=== PATIENT | male | born 1975 | race Caucasian/White ===

== ENCOUNTER 2024-04-23 11:24 | Day surgery (SDC) | payer MEDICARE, MEDICAID, SELFPAY ==
[2024-04-15 08:27] VITALS: BMI 25.8
[2024-04-23] VITALS (7 sets, daily range): BP systolic 128–164; BP diastolic 63–98; PULSE 74–99; RESP 16–22; TEMP 35.9–37.1; O2SAT 94–100; BMI 24.6
--- NOTE | 2024-04-23 | DI.RAD.S_ITS ---
PROCEDURE: XR HIP W PEL IF DONE RT 2V TECHNIQUE: Fluoroscopic guidance utilized for a right total hip arthroplasty placement COMPARISON: None. FINDINGS: Fluoroscopic images submitted for a right total hip arthroplasty placement. Please see operative note for further discussion. IMPRESSION: Fluoroscopic guidance. Dictated by: Florentin Bai M.D. on 04/23/2024 at 17:07 Approved by: Florentin Bai M.D. on 04/23/2024 at 17:08
--- NOTE | 2024-04-23 07:18 | DI.RAD.S_ITS ---
PROCEDURE: XR HIP W PEL IF DONE RT 2V INDICATIONS: RENETTA TECHNIQUE: AP pelvis and lateral view of the hip acquired. COMPARISON: [facility], CR, XR HIP W PEL IF DONE RT 2V, 04/23/2024, 15:51. FINDINGS: Bones: Patient is status post right hip arthroplasty, with hardware components in expected positions. The hip joint appears congruent. The visualized bony structures appear intact. Soft tissues: Overlying postoperative changes are noted. No suspicious soft tissue densities. IMPRESSION: Expected post-operative appearance of a hip arthroplasty. Dictated by: Aaron Mcfarlane M.D. on 04/24/2024 at 14:20 Approved by: Aaron Mcfarlane M.D. on 04/24/2024 at 14:21
[2024-04-23] MEDS: LACTATED RINGERS 1,000 ML 42 ML IV (12:04)
[2024-04-23] MEDS: ACETAMINOPHEN 325 MG TABLET 975 MG PO (12:04)
[2024-04-23] MEDS: CELECOXIB 200 MG CAPSULE PO (12:04)
[2024-04-23] MEDS: SODIUM CHLORIDE 0.9% FLUSH 10 ML IV (12:05)
[2024-04-23] MEDS: VANCOMYCIN 1,000 MG/200 ML PIGGYBACK 200 MG IV (12:06)
--- NOTE | 2024-04-23 14:12 | PM.PREOP ---
Pre-operative Note Interval Note History & Physical reviewed/Exam performed by Physician: Yes Changes to H&P: No
--- NOTE | 2024-04-23 14:12 | PM.OP.1 ---
Operative Date/Time/Diagnoses Date of procedure: 04/23/24 Time of procedure: 14:40 Pre-op diagnosis: Right hip avascular necrosis Post-op diagnosis: same Procedure & Clinicians Procedure: Right total hip arthroplasty anterior approach Same procedure as scheduled: Yes Indications: The patient has had progressively worsening right hip pain with radiographic changes consistent with arthritis. Non-operative management has failed and the patient has requested total hip replacement. The risks, benefits and alternatives to surgery were discussed with the patient prior to proceeding. Risks discussed included, but were not limited to, failure to relieve pain, leg length discrepancy, dislocation, stiffness, infection, nerve damage, deep venous thrombosis, pulmonary embolism, stroke, coma, heart attack, permanent paralysis and , as well as the potential need for eventual revision of the prosthetic. Surgeon: Constanza Ellis Er Registrar: Colin Jones Anesthesia Type: General and Spinal Operative Notes Findings: Right hip avascular necrosis, good bone, adequate stability Closure Type: primary Specimen(s): none sent Prosthetic devices, grafts, tissues, transplants, or devices: Ellis and nephew R3 58, neutral poly liner, one 6.5 mm screw, polar stem size 5 standard offset with collar, 36 by +4 Oxinium head, Estimated Blood Loss (mL): 250 Blood products transfused: none Procedure in detail: The patient was brought to the operating room. Patient was carefully positioned in the supine position. Time-out was performed and antibiotics were given. Anesthesia was induced. He was positioned in the on the table in order to allow hyperextension of the hip. The right lower extremity was prepped and draped in a standard sterile fashion. An anterior right hip incision was made 1 fingerbreadth lateral to the anterior superior iliac spine and extended distally towards the greater trochanter. Dissection was carried out through skin and subcutaneous tissues. Superficial hemostasis was achieved. The fascia over the tensor fascia fidel was defined and incised with a knife. Two Allis clamps were used to grasp the fascia. Tensor fascia fidel was retracted laterally. A gelpi retractor was placed. Dissection was carried out down along the neck. The circumflex vessels were carefully identified and cauterized with the Aqua Mantis. A PA was used during the procedure and was essential for intraoperative retraction and safe implantation of the components. There was good visualization of the femoral neck. A Cobra was placed superior to the neck and the gluteus fibers were carefully stripped from that superior aspect of the capsule. A 2nd retractor was placed along the inferior aspect of the neck. The rectus insertion along the capsule was partially released. A 3rd retractor that was then gently placed over the rim of the acetabulum under the rectus. Capsule was carefully incised and released from the intertrochanteric line circumferentially superior to the mid sagittal line and inferiorly to the mid sagittal line until the lesser trochanter was palpable. A tag stitch was placed both in the superior and inferior limb of the capsular insertion. Along the acetabulum capsule was also released up to the mid sagittal 12:00 position. A portion of the labrum was resected. A saw was used to perform an osteotomy at the level of the intertrochanteric line and the junction of the superior femoral neck leaving approximately 1 finger breath of residual inferior neck above the lesser trochanter. A 2nd cut was made along the femoral neck at the base of the head and a napkin ring of neck was removed. Corkscrew was placed in the femoral head and the head was removed without difficulty. Retractors were then repositioned around the acetabulum. Residual labrum was resected and additional osteophytes were removed. A reamer that was 4 mm below the templated size was placed by hand in the acetabulum and it was reamed to centralize the acetabulum. It was then reamed up to 2 under the templated size and fluoroscopy was brought in to confirm the position of the reaming and depth of reaming. I reamed 1 under the anticipated size. A trial cup was placed and noted that it was appropriately sized and fluoroscopy confirmed position and depth. The component was open and inserted without difficulty fluoroscopic imaging was used to confirm that the cup had been adequately seated and was well positioned. It was further stabilized with a single screw. Neutral poly liner was placed. The cup was tested and noted to be stable. Attention was then directed to the femur. The femur was gently hyperextended additional capsular release was performed as needed in order to allow adequate visualization of the proximal femur with elevation of the femur. Patient was placed in a hyperextended slightly adducted position with maximum external rotation. Box osteotome was used to check for any residual neck as well as sclerotic bone along the trochanter. [place] pepper was placed in the femur. Additional broaching was performed. Canal finder was used to determine the alignment of the canal and position. Size 1 broach was placed. The canal was then appropriately broached up to the templated size as long as there was adequate stability of the broach and serial advancement of the broach without excessive impingement. Specific attention was directed at avoiding varus attempting to direct the distal aspect of the broach more anteriorly and avoiding excessive anteversion. Trial reduction showed acceptable range of motion, good stability, no posterior impingement, anglican of leg length and appropriate lateral shuck. I also hyperflexed the hip and checked that there was no impingement anteriorly and there was good stability with flexion, adduction and internal rotation. Marcaine and Exparel were injected. The stem was placed without difficulty. Repeat trial reduction and x-ray showed acceptable overall position, length, and no evidence of the femoral fracture. Final head was placed. Wound was meticulously irrigated with normal saline. The hip was reduced and additional Exparel and Marcaine were injected. The capsule was closed with interrupted nonabsorbable sutures. The fascia of the tensor was closed with interrupted and running Vicryl. No drain was placed. Any tensor fascia fidel muscle that appeared to be contused or injured which was a minimal amount was carefully resected. Capsule around the tensor was injected with Exparel and Marcaine. The skin was closed with barbed stitches for the subcutaneous tissue and skin. We also used surgical glue. The wound was dressed sterilely. Brief Betadine soak was also used and was meticulously irrigated with normal saline. Patient was transferred to recovery room in satisfactory condition. Complications: none Post-operative Condition: stable Disposition: Acute Care Plan for aftercare: The patient will be maintained on a standard total hip replacement protocol with weight bearing as tolerated and anterior hip precautions. The patient will receive Aspirin and sequential compression devices for DVT prophylaxis. The patient will be discharged home when safe for the home environment.
[2024-04-23] MEDS: CEFAZOLIN 2 GM/100 ML PREMIX 100 ML IV ×2 (14:26→22:38)
[2024-04-23] MEDS: TRANEXAMIC ACID 1,000 MG VIAL 1000 MG INJ (14:36)
--- NOTE | 2024-04-23 14:45 | SUR.OPER ---
Supine on padded [place] table with bilateral legs secured in padded positioning boots and suspended in positioning spars, operative leg in traction per surgeon. Head on one pillow. Arm on non-operative side secured on padded armboard <90 degrees abduction. Arm on operative side padded and resting across chest then secured with tape over sheet. Padded perineal post in place per surgeon.
[2024-04-23] MEDS: BUPIVACAINE 0.25% (PF) 60 ML, EPINEPHrine 0.3 MG INJ (14:56)
[2024-04-23] MEDS: BUPIVACAINE LIPOSOME 266 MG/20 ML VIAL INJ (14:57)
[2024-04-23] MEDS: OXYCODONE IR 5 MG TABLET PO ×2 (17:51→18:34)
[2024-04-23] MEDS: LACTATED RINGERS 1,000 ML 100 ML IV (18:12)
[2024-04-23] MEDS: ACETAMINOPHEN 325 MG TABLET 650 MG PO (18:34)
[2024-04-23] MEDS: OXYCODONE IR 10 MG TABLET PO (20:20)
[2024-04-23] MEDS: IBUPROFEN 400 MG TABLET PO (20:21)
[2024-04-23] MEDS: DOCUSATE 100 MG CAPSULE PO (20:22)
[2024-04-23] MEDS: ASPIRIN EC 81 MG TABLET PO (20:22)
[2024-04-24] MEDS: OXYCODONE IR 5 MG TABLET PO ×2 (05:25→10:00)
[2024-04-24] MEDS: ACETAMINOPHEN 325 MG TABLET 650 MG PO (05:26)
[2024-04-24 05:30] LABS: Hematocrit 31.4 % (41-53); Hemoglobin 10.6 g/dL (13.5-17.5)
[2024-04-24] MEDS: CEFAZOLIN 2 GM/100 ML PREMIX 100 ML IV (05:32)
--- NOTE | 2024-04-24 07:07 | PM.DS.1 ---
History of Present Illness History of Present Illness Date Patient Seen: 04/24/24 Time Patient Seen: 07:07 Chief complaint: OPB Narrative: Operative Date/Time/Diagnoses Date of procedure: 04/23/24 Time of procedure: 14:40 Pre-op diagnosis: Right hip avascular necrosis Post-op diagnosis: same Procedure & Clinicians Procedure: Right total hip arthroplasty anterior approach Same procedure as scheduled: Yes Indications: The patient has had progressively worsening right hip pain with radiographic changes consistent with arthritis. Non-operative management has failed and the patient has requested total hip replacement. The risks, benefits and alternatives to surgery were discussed with the patient prior to proceeding. Risks discussed included, but were not limited to, failure to relieve pain, leg length discrepancy, dislocation, stiffness, infection, nerve damage, deep venous thrombosis, pulmonary embolism, stroke, coma, heart attack, permanent paralysis and , as well as the potential need for eventual revision of the prosthetic. Surgeon: Constanza Ellis Escalator Constructor: Colin Jones Anesthesia Type: General and Spinal Operative Notes Findings: Right hip avascular necrosis, good bone, adequate stability Closure Type: primary Specimen(s): none sent Prosthetic devices, grafts, tissues, transplants, or devices: Ellis and nephew R3 58, neutral poly liner, one 6.5 mm screw, polar stem size 5 standard offset with collar, 36 by +4 Oxinium head, Estimated Blood Loss (mL): 250 Blood products transfused: none Discharge Providers Provider Discharge Date: 04/24/24 Consults: 04/23/24 07:18 Consult to Anesthesiology Routine Comment: Consulting Provider: Anesthesiologist Reason for consultation: Regional block for post operative pain control Has provider been notified: No 04/23/24 17:55 Consult to Discharge Planning Routine Comment: Consult to Occupational Therapy Evaluate & Treat Comment: Physician Instructions: Evaluate and treat Consult to Physical Therapy Evaluate & Treat Comment: Physician Instructions: post op RENETTA protocol Discharge provider: Maren Hardy PA-C Summary Hospital Course Discharge Diagnosis: Right hip avascular necrosis, s/p right total hip arthroplasty Hospital Course: Mr Andrew's hospital course was unremarkable. On the morning of POD# 1, he was feeling well and wanted to go home. He was eating and voiding without difficulty, and his pain was well-controlled with oral medication. He had not yet been evaluated by PT but had been OOB several times. Exam Vital Signs (past 8 hours): Oxygen Delivery Method Room Air Oxygen Flow Rate 0 Narrative Exam Narrative: 5/5 strength in hip flexors, quadriceps, hamstrings, DF, PF, EHL on right. Sensation to light touch intact throughout LLE. Calf soft, compressible, nontender. Aquacel dressing CDI. Objective Labs 04/24/24 04:50 Labs: Laboratory Results - last 24 hr 04/24/24 04:50 Hgb 10.6 L Hct 31.4 L PFSH Medical History (Updated 04/20/24 @ 09:13 by Crystal Krishnamurthy RN) History of COVID-19 (05/2022) Anxiety Idiopathic aseptic necrosis of right femur CVA (cerebral vascular accident) (2014) Surgical History (Updated 04/20/24 @ 09:16 by Crystal Krishnamurthy RN) Hx of colonoscopy (2022) Social History household members: significant other Smoking Status: Former smoker alcohol intake: former Discharge Assessment & Plan Assessment and Plan Assessment: Right hip avascular necrosis, s/p right total hip arthroplasty Plan of Treatment: Discharge home, pt has home meds, ASA 81mg BID for VTE prophylaxis, outpt PT, f/u in office as scheduled. Discharge Plan Discharge Plan Patient Disposition: Home Discharge orders & Medications Discharge Orders: Discharge (Order); Ordered 04/24/24 Ordered By: Maren Hardy Prescriptions: Continued atorvastatin 40 mg Tablet 40 mg PO DAILY buspirone 5 mg Tablet 5 mg PO DAILY aspirin [Aspir-81] 81 mg Tablet,Delayed Release (Dr/Ec) 81 mg PO DAILY duloxetine 60 mg Capsule,Delayed Release(Dr/Ec) 60 mg PO DAILY Follow up/Referrals: Constanza Ellis MD [Physician] - 05/08/24 10:00 am () Diet/Activity/Treatments Diet: Diet as Tolerated Activity: Weightbearing as tolerated. Anterior hip precautions. Cold/Heat Therapy: Ice to hip as needed for pain. Skin/Wound/Dressing Care Report to your healthcare provider any signs of infection, such as:: chills, fever, night sweats, unusual drainage and unusual redness Dressing: May shower. Leave dressing in place until follow up in office. No bathing or otherwise soaking incision. Call the office if the dressing becomes saturated inside. Visit Report/Discharge Packet Instructions: DI for Hip Replacement, DI for Prescription Opioid Use Stand Alone Forms: Patient Portal/API, Surgery Discharge Discharge Data Attending Provider: Constanza Ellis
--- NOTE | 2024-04-24 09:24 | OT.IP.EVAL ---
Current Diagnoses Idiopathic aseptic necrosis of right femur (04/23/24) Surgery Performed Operation Date: 04/23/24 13:45 Actual Procedures p Total Hip Arthroplasty/Anterior Approach(Right) - Constanza Ellis MD Past Medical History (Last Updated 04/20/24 @ 09:13 by Crystal Krishnamurthy, RN) Anxiety CVA (cerebral vascular accident) (2014) History of COVID-19 (05/2022) Idiopathic aseptic necrosis of right femur Surgical History (Last Updated 04/20/24 @ 09:16 by Crystal Krishnamurthy RN) Hx of colonoscopy (2022) Occupational Therapy Inpatient Evaluation/Re-Eval M1 PT/OT-IP Prior Functional Status Start: 04/24/24 10:57 Freq: NEEDED Status: Active Protocol: Document 04/24/24 08:45 [facility] (Rec: 04/24/24 11:16 [facility] [id number]) Medical Review Prior Functional Status Medical History Reviewed Yes Diet/Fluid Consistency Regular Communication Independent Mobility and Gait Able to walk without a device but had pain. Activities of Daily Living and IADL's Independent but having trouble with shoes and socks due to his pain. Prior Functional Level (Other details) Pt lives with his girlfriend who will be able to assist him at home. Social History Household Members significant other Living Arrangements House Number of Floors (Floors) One Floor Home Environment High Toilet,Tub/Shower,Ramp Home Equipment Front Wheel Walker,Straight Cane,Raised Toilet Seat w/ Armrests,Shower Seat with Backrest,Hand Held Shower,Long Handled Shoe Horn,Warehouse Team Member, Sock Aid,Grab Bars In Shower M2 OT-IP Current Condition Start: 04/24/24 10:57 Freq: Status: Active Protocol: Document 04/24/24 08:45 [facility] (Rec: 04/24/24 11:16 [facility] [id number]) Occupational Therapy Current Condition Current Condition Evaluation Date 04/24/24 Treatment Diagnosis S/P R RENETTA Diagnosis Onset Date 04/23/24 Post Operative Precautions Anterior Hip Precautions No Hip Extension,No Hip External Rotation Weight Bearing Status Weight Bearing Status Weight Bear as Tolerated M3 OT- IP Subjective and Pain Start: 04/24/24 10:57 Freq: Status: Active Protocol: Document 04/24/24 08:45 [facility] (Rec: 04/24/24 11:16 [facility] [id number]) OT- Subjective Occupational Therapy Visit Type Type Initial Evaluation Visit Start Time 08:45 Visit Stop Time 09:24 Occupational Therapy Visit Comments Patient Comments Pt agreed to get dressed and work with OT. Patient/Caregiver Goals TO go home. OT Pain Assessment Pain When Pain Assessed At Rest Pain Present Pain Present Pain Reported Location Right Hip Intensity 1 Scale Used Numeric (0 - 10) M4 OT- IP ADL's Start: 04/24/24 10:57 Freq: Status: Active Protocol: Document 04/24/24 08:45 [facility] (Rec: 04/24/24 11:16 [facility] [id number]) OT OAE-Izbo-Rryxvir General Evaluation Self-Feeding Ability Independent OT ADL-Grooming General Evaluation Grooming Ability Independent OT ADL-Oral Care General Eval Oral Care Ability Independent OT ADL-Dressing General Eval Upper Body Dressing Ability Independent Lower Body Dressing Ability Moderate Assistance Areas Needing Assistance Socks,Shoes Comments OT Dressing Comments Assist for socks, able to practice use of socks aid so pt able to independently harry his socks. Educated not to cross his RLE for LB dressing needs. OT ADL-Toileting Comments OT Toileting Comments Pt not having to go. OT ADL-Bathing Comments OT Bathing Comments Not performed, went over care for dressing while showering. M5 OT- IP IADL's Start: 04/24/24 10:57 Freq: Status: Active Protocol: Document 04/24/24 08:45 [facility] (Rec: 04/24/24 11:16 [facility] [id number]) OT-Instrumental Activities of Daily Living Deficits IADL Deficits Identified Deficits Home Safety Awareness Awareness of Need for Assistance at Home Good Awareness Ability to Problem Solve Emergency Able to Problem Solve Situations Medication Management Medication Management Comments Pt states take his own medications. Money Management Money Management Caregiver Provides Assistance Meal Preparation Meal Preparation Caregiver Provides Assist Career Developer Career Developer Caregiver Provides Assist M6 OT- IP Functional Cognition Start: 04/24/24 10:57 Freq: Status: Active Protocol: Document 04/24/24 08:45 [facility] (Rec: 04/24/24 11:16 [facility] [id number]) Cognitive Factors Limiting Selfcare Function Cognitive Ability Level of Alertness Alert Patient Orientation Name,Age,Birthday,Month,Date, Year,Day of Week,Place, Situation Attention Span Ability Capable of Focused Attention, Capable of Sustained Attention Ability to Follow Commands Able to Follow One Step Commands Memory Description Short Term Impaired Safety Awareness Decreased Ability to Apply Precautions Cognitive Comments Cognitive Assessment Comments Pt has had a CVA in 2015 which results in right hemiparesis- which has resolves and per chart memory /cogn issues. Pt needing instructions and reminders to incorporate his anterior hip precautions for ADL and mobility needs. VC for hand placement to do push up from surfaces when comign to stand to FWW. OT- Vision and Hearing OT- Hearing Assessment OT- Hearing Assessment WFL OT- Vision Assessment Visual Acuity WFL Visual Attentiveness WFL Occular Pursuits WFL Visual Convergence WFL Visual Daily WFL M7 OT- IP Mobility and Balance Start: 04/24/24 10:57 Freq: Status: Active Protocol: Document 04/24/24 08:45 [facility] (Rec: 04/24/24 11:16 [facility] [id number]) OT- Bed Mobility Assessment Supine to Sit Supine to Sit Assist Standby Assistance Sit to Supine Sit to Supine Assist Standby Assistance Scooting Scooting to Edge of Bed Standby Assistance OT-Transfer Assessment Sit to and From Stand Sit to and from Stand Standby Assistance Transfers Transfer Ability Standby Assistance Technique Transfer Destination Bed,Chair Transfer Technique Stand Step Pivot Devices Transfer Assistive Devices Gait Belt,Front Wheeled Walker Comments Mobility Comments SBA for mobility needs with FWW and MODA vc for Anterior precautions. Educated pt on keeping his toes up with RLE into and out of the bed. At this time, pt having to use his hands to assist. OT- Balance Assessment Sitting Balance and Reactions Static Sitting Balance Ability Normal Dynamic Sitting Balance Ability Normal Standing Balance and Reactions Static Standing Balance Ability Good Dynamic Standing Balance Ability Good M8 OT- IP Objective Assessments Start: 04/24/24 10:57 Freq: Status: Active Protocol: Document 04/24/24 08:45 [facility] (Rec: 04/24/24 11:16 [facility] [id number]) OT Gross Range of Motion Upper Extremity Range of Motion Assessment Within Functional Limits OT Strength Upper Extremity Strength Assessment Within Functional Limits OT-Muscle Tone Assessment Muscle Tone WNL Yes M9 OT- IP Assessment and Plan Start: 04/24/24 10:57 Freq: Status: Active Protocol: Document 04/24/24 08:45 [facility] (Rec: 04/24/24 11:16 [facility] [id number]) OT Summary Assessment and Plan Potential Rehabilitation Potential Excellent Analytic Complexity at Evaluation Low Summary OT Impairments Pain,Strength,Balance, Functional Mobility,Dressing, Bathing,Shower Transfers Progress Towards Goals Progressing Toward Goals Assessment Summary Pt low complexity and main barriers are pain and needing reminders to incorporate his hip precautions during ADL and mobility needs. Pt moving well and mainly just needing reminders to follow his anterior precautions. Pt to go home with his girlfriend and have outpt PT. Goals Dressing Goal Independent,Warehouse Team Member,Sock Aid Toileting Goal Independent Bathing Goal Standby Assistance Toilet Transfer Goal Independent Shower Transfer Goal Standby Assistance Patient/Caregiver Education Goal Demonstrate Post-Op Precautions Days to Meet Goals 2 Frequency of Treatment Frequency Of Treatment Once a Day Treatment Plan OT Treatment Plan ADL Training,Functional Mobility,Patient/Family Education,Discharge Planning Discharge Recommendations OT Discharge Recommendations Home with Assistance, Outpatient PT Transportation Needs at Discharge Private Vehicle
[2024-04-24] MEDS: BUSPIRONE 5 MG TABLET PO (09:55)
[2024-04-24] MEDS: DOCUSATE 100 MG CAPSULE PO (09:55)
[2024-04-24] MEDS: ATORVASTATIN 20 MG TABLET 40 MG PO (09:55)
[2024-04-24] MEDS: ASPIRIN EC 81 MG TABLET PO (09:55)
[2024-04-24] MEDS: DULOXETINE 30 MG CAPSULE 60 MG PO (09:55)
[2024-04-24] MEDS: IBUPROFEN 400 MG TABLET PO (10:00)
--- NOTE | 2024-04-24 10:40 | PT.IIE ---
Current Diagnoses Idiopathic aseptic necrosis of right femur (04/23/24) Surgery Performed Operation Date: 04/23/24 13:45 Actual Procedures p Total Hip Arthroplasty/Anterior Approach(Right) - Constanza Ellis MD Surgical History (Last Updated 04/20/24 @ 09:16 by Crystal Krishnamurthy RN) Hx of colonoscopy (2022) Medical History (Last Updated 04/20/24 @ 09:13 by Crystal Krishnamurthy RN) Anxiety CVA (cerebral vascular accident) (2014) History of COVID-19 (05/2022) Idiopathic aseptic necrosis of right femur Physical Therapy Inpatient Evaluation/Re-Eval M1 PT/OT-IP Prior Functional Status Start: 04/24/24 10:57 Freq: NEEDED Status: Discharge Protocol: Document 04/24/24 08:45 [facility] (Rec: 04/24/24 11:16 [facility] [id number]) Medical Review Prior Functional Status Medical History Reviewed Yes Diet/Fluid Consistency Regular Communication Independent Mobility and Gait Able to walk without a device but had pain. Activities of Daily Living and IADL's Independent but having trouble with shoes and socks due to his pain. Prior Functional Level (Other details) Pt lives with his girlfriend who will be able to assist him at home. Social History Household Members significant other Living Arrangements House Number of Floors (Floors) One Floor Home Environment High Toilet,Tub/Shower,Ramp Home Equipment Front Wheel Walker,Straight Cane,Raised Toilet Seat w/ Armrests,Shower Seat with Backrest,Hand Held Shower,Long Handled Shoe Horn,Equity Sales Assistant, Sock Aid,Grab Bars In Shower M1 PT/OT-IP Prior Functional Status Start: 04/24/24 13:45 Freq: NEEDED Status: Active Protocol: Document 04/24/24 10:40 AB (Rec: 04/24/24 13:59 AB [id number]) Medical Review Prior Functional Status Medical History Reviewed Yes Diet/Fluid Consistency Regular Communication able to make needs known Mobility and Gait pt stated that he was independent with all mobilities and ambulation without AD Activities of Daily Living and IADL's per OT note: Independent but having trouble with shoes and socks due to his pain. Social History Household Members significant other Living Arrangements House Number of Floors (Floors) One Floor Number of Stairs To Enter/Railing? ramp to enter Home Environment Standard Height Toilet,Tub/ Shower,Ramp Home Equipment Front Wheel Walker,Crutches, Raised Toilet Seat w/Armrests, Shower Seat with Backrest,Hand Held Shower,Grab Bars Near Toilet,Grab Bars In Shower Employment Status Unemployed Additional Social History Comment pt is on disability M2 PT-IP Current Condition Start: 04/24/24 13:45 Freq: NEEDED Status: Active Protocol: Document 04/24/24 10:40 AB (Rec: 04/24/24 13:59 AB [id number]) Physical Therapy Current Condition Current Condition Evaluation Date 04/24/24 Treatment Diagnosis s/p R RENETTA anterior; difficulty in walking Onset Date 04/23/24 M3 PT-IP Subjective Start: 04/24/24 13:45 Freq: NEEDED Status: Active Protocol: Document 04/24/24 10:40 AB (Rec: 04/24/24 13:59 AB [id number]) Subjective Physical Therapy Visit Type Type Initial Evaluation Visit Start Time 10:40 Visit Stop Time 11:05 Number of WHITE METAL CASTER Visits 0 Physical Therapy Visit Comments Patient Comments agreeable to do PT Therapy Pain Assessment Pain Present Pain Present Denied Pain M4 PT-IP Mobility and Gait Start: 04/24/24 13:45 Freq: NEEDED Status: Active Protocol: Document 04/24/24 10:40 AB (Rec: 04/24/24 13:59 AB [id number]) PT-Bed Mobility Assessment Supine to Sit Supine to Sit Standby Assistance Sit to Supine Sit to Supine Standby Assistance PT-Transfer Assessment Sit to and From Stand Sit to and from Stand Standby Assistance,1 Person Assistance,Use of Upper Extremities Equipment Transfer Assistive Device Gait Belt,Front Wheeled Walker Orthotic/Prosthetic Devices or Brace: No Transfers Transfer Destination Bed,Chair Transfer Technique ambulated Transfer Ability Level of Assist Standby Assistance Comments Mobility Comments pt sitting on the chair and agreeable to do PT. Obtained PLOF and home set up from pt. pt already completed OT and reviewed anterior hip precautions with pt and pt unable to recall. Pt educated on anterior hip precautions again. pt completed sit to stand from the chair SBA and ambulated in room using fWW SBA ~ 40 ft. initially needing cues for precautions but able to carryover afterwards. pt sat on EOB and completed sit < >supine SBA. pt completed sit to stand from EOB SBA and step transfer to chair using FWW SBA. positioned pt on the chair. call light and table placed within reach. pt without further concerns. Gait Assessment Gait Gait Assistance Required: Independent Distance (Feet) 40 Able to Maintain Weight Bearing Status Yes During Gait Assistive Devices Assistive Device Gait Belt,Front Wheeled Walker Orthotic/Prosthetic Devices or Brace: No Factors Limiting Gait Function Factors Limiting Gait Function Decreased Activity Tolerance, Decreased Strength,Limited Range of Motion,Poor Balance, Poor Safety Awareness PT-Balance Assessment Sitting Balance and Reactions Static Sitting Balance Ability Normal Dynamic Sitting Balance Ability Good Standing Balance and Reactions Static Standing Balance Ability Good Dynamic Standing Balance Ability Fair Device Used FWW M5 PT-IP Objective Assessments Start: 04/24/24 13:45 Freq: NEEDED Status: Active Protocol: Document 04/24/24 10:40 AB (Rec: 04/24/24 13:59 AB [id number]) Orientation Orientation/Cognition Level of Alertness Alert Orientation Name,Place,Situation Language Function Ability No Deficits Noted Safety Awareness Decreased Safety Awareness Memory Description Short Term Impaired Gross Range of Motion Lower Extremity ROM Assessment Within Functional Limits Strength Lower Extremity Strength Assessment Right Impaired Hip 3-/5 Knee 4-/5 Coordination Assessment Gross Coordination Gross Coordination WNL Muscle Tone Muscle Tone WNL Yes M6 PT-IP Treatment Start: 04/24/24 13:45 Freq: NEEDED Status: Active Protocol: Document 04/24/24 10:40 AB (Rec: 04/24/24 13:59 AB [id number]) Physical Therapy Treatment Education Education Provided Precautions,Weight Bearing Status,Safety M7 PT-IP Assessment and Plan Start: 04/24/24 13:45 Freq: NEEDED Status: Active Protocol: Document 04/24/24 10:40 AB (Rec: 04/24/24 13:59 AB [id number]) PT Summary Assessment and Plan Potential Rehabilitation Potential Good Status of Condition at Evaluation Stable Summary Impairments Pain,ROM,Strength,Balance, Coordination,Sensation, Cognition,Bed Mobility, Transfers,Gait,Activity Tolerance Assessment Summary pt is a 48 y/o M s/p R RENETTA anterior approach POD 1. pt has R hip anterior precautions and is WBAT. pt requiring SBA with mobility and plans to go home with his girlfriend to assist him. pt stated that he has outpt PT setup. pt may go home when medically stable Goals Bed Mobility Goal Independent Transfer Goal Independent,Front Wheeled Walker Gait Goal Independent,Front Wheel Walker Gait Distance 300 Days to Meet Goals 3 Frequency of Treatment Frequency Of Treatment Twice a Day Treatment Plan Physical Therapy Treatment Plan Bed Mobility Training,Transfer Training,Gait Training, Therapeutic Exercise,Balance Retraining,Post Op Education, Discharge Planning,Hot or Cold Pack,Neuromuscular Re-ed, Coordination Retraining,Manual Therapy Precautions Anterior Hip Precautions No Hip Extension,No Hip External Rotation Weight Bearing Status Weight Bearing Status Weight Bear as Tolerated Allowed Weight Bearing Amount (enter % RLE WBAT or #) (%) Recommendations To Nursing Amount of Assist Needed 1 Person Assist Discharge Recommendations PT Discharge Recommendations Home with Assistance, Outpatient PT Transportation Needs at Discharge Private Vehicle
--- NOTE | 2024-04-24 12:41 | CM.DANOTE ---
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 Pt lives in a house with his significant other, Landon. Pt's Primary Care Provider is Miquel Kong PA-C and insurance is Medicare and Medicaid. Reviewed chart and team rounds for pt's medical status and initial discharge needs. DCP met w/patient at bedside; introduced self and role. Pt was found in bed, alert and oriented, cooperative with assessment. Pt confirmed living situation and good support in significant other, Landon. Pt confirmed he is independent at baseline and was fully dressed, ready to dc home. Pt expressed preference in returning home as soon possible, denied any dc needs at this time. Plan: Anticipating dc home with significant other to transport. Discharge order is in. CM Team following if any dc needs arise. EUFEMIA Andrews Discharge Planning/Care Management CM Discharge Assessment Start: 04/24/24 12:38 Freq: Status: Active Protocol: Document 04/24/24 12:39 MW (Rec: 04/24/24 12:40 MW [id number]) Discharge Planning Assessment Assigned Front Office Secretary ARTURO Ulloa DPOA/Assigned Designee Name Landon Urban, Significant Other Contact Information [phone] Advance Directives? No History Provided By Patient Has Patient been admitted in last 30 No days? Prior Living Arrangements House Household Members significant other Type of transporation used prior to Drives own vehicle admit Independent with ADL's Yes Is patient alert and oriented? Yes Caregiver for Another No DME Already Rented / Owned FWW / Walker,Other Comment Pt has a ramp to assist with getting them in house. Discharge Plan Home Whiteboard Updated in Patient Room with Yes name and ext. # of Front Office Secretary Comment [phone] Please Provide Date Initial DC 04/24/24 Assessment Was Performed Next Review Type Continued Stay Review
--- NOTE | 2024-04-24 12:46 | PC.NURSE ---
Discharge: Pt cleared by OT & PT. Ambulating ind in room. IV removed. Education provided to pt on follow up, s/s symptoms, hip precautions, fall precautions. Pt wheeled via w/c to private vehicle at approximately 1230.
== END 2024-04-24 12:30 | disposition home or self-care (01) ==
LOC: OR 11:30 → AC 11:34
PROVIDERS: Referring Provider Orthopaedic Surgery; Visit Provider Orthopaedic Surgery
PROC: (CPT 27130; principal; 2024-04-23 13:45)
DX: M87.051 Idiopathic aseptic necrosis of right femur (principal); I69.351 Hemiplegia and hemiparesis following cerebral infarction affecting right dominant side; I69.311 Memory deficit following cerebral infarction; Z87.891 Personal history of nicotine dependence
CPT/HCPCS: 27130; 36415; 73502; 76000; 85014; 85018; 97161; 97165; 97530; 97535; C1776; C9290; J0171; J0690; J1100; J2250; J2405; J2704; J3010